=== PATIENT | female | born 1965 | race Caucasian/White ===

== ENCOUNTER → 2018-05-26 | Outpatient (CLI) | payer MEDICAID ==
--- NOTE | 2018-05-30 07:46 | MM ---
Reason for exam: screening (asymptomatic). Last mammogram was performed 2 years and 1 month ago. History: Patient is postmenopausal. Physical Findings: A clinical breast exam by your physician is recommended on an annual basis and results should be correlated with mammographic findings. MG 3D Screening Mammo W/Cad Bilateral CC and MLO view(s) were taken. Prior study comparison: April 28, 2016, bilateral MG 3d screening mammo w/cad. February 28, 2015, bilateral MG screening mammo w CAD. The breast tissue is heterogeneously dense. This may lower the sensitivity of mammography. No significant changes when compared with prior studies. ASSESSMENT: Negative, BI-RAD 1 RECOMMENDATION: Routine screening mammogram of both breasts in 1 year.
== END | disposition home or self-care (01) ==
LOC: RADMAMWWP 07:16
PROVIDERS: ATTEND Family Medicine
DX: Z12.31 Encounter for screening mammogram for malignant neoplasm of breast (principal)
CPT/HCPCS: 77063; 77067

== ENCOUNTER → 2019-06-14 | Outpatient (CLI) | payer MEDICAID ==
--- NOTE | 2019-06-15 11:54 | MM ---
Reason for exam: screening (asymptomatic). Last mammogram was performed 1 year and 1 month ago. History: Patient is postmenopausal. Family history of breast cancer in sister. Physical Findings: A clinical breast exam by your physician is recommended on an annual basis and results should be correlated with mammographic findings. MG 3D Screening Mammo W/Cad Bilateral CC and MLO view(s) were taken. Prior study comparison: May 26, 2018, bilateral MG 3d screening mammo w/cad. April 28, 2016, bilateral MG 3d screening mammo w/cad. The breast tissue is heterogeneously dense. This may lower the sensitivity of mammography. No suspicious abnormality on the right breast. Left central inner middle depth focal asymmetry. ASSESSMENT: Incomplete: need additional imaging evaluation, BI-RAD 0 RECOMMENDATION: Special view mammogram of the left breast. If lesion persists on supplemental views, image directed ultrasound is recommended. [facility] will attempt to contact patient to return for supplemental views and ultrasound if indicated.
== END | disposition home or self-care (01) ==
LOC: RADMAMWWP 08:12
PROVIDERS: ATTEND Family Medicine
DX: Z12.39 Encounter for other screening for malignant neoplasm of breast (principal)
CPT/HCPCS: 77063; 77067

== ENCOUNTER → 2019-06-22 | Outpatient (CLI) | payer MEDICAID ==
--- NOTE | 2019-06-25 09:00 | MM ---
Reason for exam: additional evaluation requested from abnormal screening. Last mammogram was performed less than 1 month ago. History: Patient is postmenopausal. Family history of breast cancer in sister and breast cancer in paternal aunt. Physical Findings: Nurse did not find any significant physical abnormalities on exam. MG 3D Work Up W/Cad LT Spot compression CC, spot compression MLO, and LM view(s) were taken of the left breast. Prior study comparison: June 14, 2019, bilateral MG 3d screening mammo w/cad. May 26, 2018, bilateral MG 3d screening mammo w/cad. The breast tissue is heterogeneously dense. This may lower the sensitivity of mammography. There is no discrete abnormality including area of concern on compression. These results were verbally communicated with the patient and result sheet given to the patient on 06/22/19. ASSESSMENT: Probably benign, BI-RAD 3 RECOMMENDATION: Follow-up diagnostic mammogram of the left breast in 6 months.
== END | disposition home or self-care (01) ==
LOC: RADMAMWWP 14:54
PROVIDERS: ATTEND Family Medicine
DX: R92.8 Other abnormal and inconclusive findings on diagnostic imaging of breast (principal)
CPT/HCPCS: 77061; 77065

== ENCOUNTER 2020-10-27 12:33 | Emergency (ER) | payer MEDICAID ==
[2020-10-27] MEDS ORDERED: ASPIRIN 81 MG PO STA (14:20)
--- NOTE | 2020-10-27 14:23 | ED ---
Recheck HPI - General Chief Complaint: Recheck/Abnormal Lab/Rx Stated Complaint: abn EKG Time Seen by Provider: 10/27/20 14:02 Source: patient, family Mode of arrival: ambulatory Limitations: no limitations - History of Present Illness Initial Comments: 55-year-old female presents to emergency Department with a chief complaint of EKG changes. Patient reports over the last 3-4 days she has been parents and lightheaded episodes with hypotension of a systolic blood pressure in the high 90s. Patient also reports having bilateral hand tremors over the last several days at the same time. She also reports feeling slightly nausea but denies any vomiting. Patient reports today she went to her primary care physician who obtained EKGs and her noted Q waves in lead II and aVF so he advised her to come to the emergency department further evaluation. Patient is nonsmoker. No history of hypertension but does report dyslipidemia but is not currently tr eated for. Not diabetic nor kidney disease. However, she does have strong family history of early cardiac related and both parents at the age of 47. She denies any associated chest pain or shortness of breath at this time. He also reports feeling anxious at the moment. - Related Data Home Medications Medication Instructions Recorded Confirmed No Known Home Medications 02/05/14 02/05/14 Allergies Allergy/AdvReac Type Severity Reaction Status Date / Time No Known Allergies Allergy Verified 10/27/20 13:00 Review of Systems ROS Statement: Those systems with pertinent positive or pertinent negative responses have been documented in the HPI. ROS Other: All systems not noted in ROS Statement are negative. Past Medical History Past Medical History: Cancer Additional Past Medical History / Comment(s): skin cancer History of Any Multi-Drug Resistant Organisms: None Reported Additional Past Surgical History / Comment(s): skin cancer removal Past Psychological History: No Psychological Hx Reported Smoking Status: Never smoker Past Alcohol Use History: None Reported Past Drug Use History: None Reported General Exam Limitations: no limitations General appearance: alert, in no apparent distress, anxious Head exam: Present: atraumatic, normocephalic, normal inspection Eye exam: Present: normal appearance, PERRL, EOMI Pupils: Present: normal accommodation ENT exam: Present: normal exam, normal oropharynx, mucous membranes moist, TM's normal bilaterally, normal external ear exam Neck exam: Present: normal inspection, full ROM. Absent: tenderness, lymphadenopathy Respiratory exam: Present: normal lung sounds bilaterally. Absent: respiratory distress, wheezes, rales, rhonchi, stridor, chest wall tenderness, accessory muscle use Cardiovascular Exam: Present: regular rate, normal rhythm, normal heart sounds. Absent: systolic murmur Extremities exam: Present: normal inspection, full ROM, normal capillary refill, other (Palpable DP and PT bilaterally.). Absent: tenderness, pedal edema, joint swelling, calf tenderness Back exam: Present: normal inspection, full ROM. Absent: tenderness, CVA tenderness (R), CVA tenderness (L) Neurological exam: Present: alert, oriented X3 Psychiatric exam: Present: normal affect, normal mood Skin exam: Present: warm, dry, intact, normal color Course Vital Signs 10/27/20 10/27/20 13:00 14:37 Temperature 98.3 F Pulse Rate 72 74 Respiratory 16 18 Rate Blood Pressure 125/87 132/95 O2 Sat by Pulse 100 100 Oximetry Medical Decision Making - Medical Decision Making 55-year-old female presents to emergency Department with a chief complaint of EKG changes. On physical examination, patient is well-appearing with stable vitals. CBC CMP was within normal limits. Initial troponins are negative. EKG changes reveal a Q wave in lead 3 and aVF. No other acute ischemic changes noted. EKG was also evaluated by Dr. Pickens. No chest pain or shortness of breath. Chest x-ray is unremarkable. I offered cardiac observation to the patient, she declined. 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 Strict return parameters were thoroughly discussed the patient was understanding ago. Case discussed with Dr. Pickens. - Lab Data Result diagrams: 10/27/20 14:29 10/27/20 14:29 Lab Results 10/27/20 10/27/20 10/27/20 Range/Units 14:29 14:29 14:29 WBC 7.6 (3.8-10.6) k/uL RBC 4.47 (3.80-5.40) m/uL Hgb 13.4 (11.4-16.0) gm/dL Hct 40.3 (34.0-46.0) % MCV 90.1 (80.0-100.0) fL MCH 30.0 (25.0-35.0) pg MCHC 33.3 (31.0-37.0) g/dL RDW 12.6 (11.5-15.5) % Plt Count 266 (150-450) k/uL MPV 7.8 Neutrophils % 64 % Lymphocytes % 28 % Monocytes % 4 % Eosinophils % 2 % Basophils % 0 % Neutrophils # 4.9 (1.3-7.7) k/uL Lymphocytes # 2.2 (1.0-4.8) k/uL Monocytes # 0.3 (0-1.0) k/uL Eosinophils # 0.2 (0-0.7) k/uL Basophils # 0.0 (0-0.2) k/uL PT 10.3 (9.0-12.0) sec INR 1.0 (<1.2) APTT 25.0 (22.0-30.0) sec Sodium 143 (137-145) mmol/L Potassium 4.4 (3.5-5.1) mmol/L Chloride 107 (98-107) mmol/L Carbon Dioxide 28 (22-30) mmol/L Anion Gap 8 mmol/L BUN 13 (7-17) mg/dL Creatinine 0.67 (0.52-1.04) mg/dL Est GFR (CKD-EPI)AfAm >90 (>60 ml/min/1.73 sqM) Est GFR (CKD-EPI)NonAf >90 (>60 ml/min/1.73 sqM) Glucose 99 (74-99) mg/dL Calcium 9.7 (8.4-10.2) mg/dL Magnesium 2.3 (1.6-2.3) mg/dL Total Bilirubin 0.3 (0.2-1.3) mg/dL AST 24 (14-36) U/L ALT 15 (4-34) U/L Alkaline Phosphatase 84 (38-126) U/L Troponin I (0.000-0.034) ng/mL Total Protein 7.6 (6.3-8.2) g/dL Albumin 4.6 (3.5-5.0) g/dL 10/27/20 Range/Units 14:29 WBC (3.8-10.6) k/uL RBC (3.80-5.40) m/uL Hgb (11.4-16.0) gm/dL Hct (34.0-46.0) % MCV (80.0-100.0) fL MCH (25.0-35.0) pg MCHC (31.0-37.0) g/dL RDW (11.5-15.5) % Plt Count (150-450) k/uL MPV Neutrophils % % Lymphocytes % % Monocytes % % Eosinophils % % Basophils % % Neutrophils # (1.3-7.7) k/uL Lymphocytes # (1.0-4.8) k/uL Monocytes # (0-1.0) k/uL Eosinophils # (0-0.7) k/uL Basophils # (0-0.2) k/uL PT (9.0-12.0) sec INR (<1.2) APTT (22.0-30.0) sec Sodium (137-145) mmol/L Potassium (3.5-5.1) mmol/L Chloride (98-107) mmol/L Carbon Dioxide (22-30) mmol/L Anion Gap mmol/L BUN (7-17) mg/dL Creatinine (0.52-1.04) mg/dL Est GFR (CKD-EPI)AfAm (>60 ml/min/1.73 sqM) Est GFR (CKD-EPI)NonAf (>60 ml/min/1.73 sqM) Glucose (74-99) mg/dL Calcium (8.4-10.2) mg/dL Magnesium (1.6-2.3) mg/dL Total Bilirubin (0.2-1.3) mg/dL AST (14-36) U/L ALT (4-34) U/L Alkaline Phosphatase (38-126) U/L Troponin I <0.012 (0.000-0.034) ng/mL Total Protein (6.3-8.2) g/dL Albumin (3.5-5.0) g/dL - EKG Data EKG Comments: Sinus rhythm with first-degree AV block Q-wave in lead 3 and aVF Ventricular rate 73, pO2 110, QRS 60, QTC 431. Disposition Clinical Impression: No acute ischemic changes on electrocardiogram, Lightheadedness Disposition: HOME SELF-CARE Condition: Stable Instructions (If sedation given, give patient instructions): Stress Echocardiogram (DC) Additional Instructions: Follow-up with the manager performance improvement. Return to emergency department if symptoms worsen. Is patient prescribed a controlled substance at d/c from ED?: No Referrals: Elizabeth Ramos III, MD [Primary Care Provider] - 1-2 days Adair Gordillo MD [STAFF PHYSICIAN] - 1-2 days Time of Disposition: 15:59
[2020-10-27 14:45] LABS: Basophils % (A) 0 %; Eosinophils # (A) 0.2 k/uL (0-0.7); Eosinophils % (A) 2 %; HCT 40.3 % (34.0-46.0); HGB 13.4 gm/dL (11.4-16.0); Lymphocytes # (A) 2.2 k/uL (1.0-4.8); Lymphocytes % (A) 28 %; MCHC 33.3 g/dL (31.0-37.0); MCV 90.1 fL (80.0-100.0); Mean Platelet Volume 7.8; Monocytes # (A) 0.3 k/uL (0-1.0); Monocytes % (A) 4 %; Neutrophils # (A) 4.9 k/uL (1.3-7.7); Neutrophils % (A) 64 %; Platelet Count 266 k/uL (150-450); RBC 4.47 m/uL (3.80-5.40); RDW 12.6 % (11.5-15.5); WBC 7.6 k/uL (3.8-10.6)
[2020-10-27 14:53] LABS: ALT 15 U/L (4-34); AST 24 U/L (14-36); African American GFR (CKD) >90 (>60 ml/min/1.73 sqM); Albumin 4.6 g/dL (3.5-5.0); Alkaline Phosphatase 84 U/L (38-126); Anion Gap 8 mmol/L; Blood Urea Nitrogen 13 mg/dL (7-17); Calcium 9.7 mg/dL (8.4-10.2); Carbon Dioxide 28 mmol/L (22-30); Chloride 107 mmol/L (98-107); Glucose 99 mg/dL (74-99); Magnesium 2.3 mg/dL (1.6-2.3); Non-African American GFR(CKD) >90 (>60 ml/min/1.73 sqM); Potassium 4.4 mmol/L (3.5-5.1); Sodium 143 mmol/L (137-145); Total Bilirubin 0.3 mg/dL (0.2-1.3); Total Protein 7.6 g/dL (6.3-8.2)
[2020-10-27 15:13] LABS: Prothrombin Time 10.3 sec (9.0-12.0)
--- NOTE | 2020-10-27 15:46 | XR ---
EXAMINATION TYPE: XR chest 2V DATE OF EXAM: 10/27/2020 COMPARISON: None HISTORY: 55-year-old female with chest pain TECHNIQUE: Frontal and lateral views FINDINGS: The cardiomediastinal silhouette, aorta, and pulmonary vasculature are within normal limits. Lungs an d pleural spaces are clear. IMPRESSION: No acute cardiopulmonary process.
[2020-10-27 16:26] VITALS: BP 121/72; PULSE 80; RESP 16; TEMP 98.2
== END 2020-10-27 16:31 | disposition home or self-care (01) ==
LOC: EC 12:33
DX: R42 Dizziness and giddiness (principal); R11.0 Nausea; R25.1 Tremor, unspecified
CPT/HCPCS: 36415; 71046; 80053; 83735; 84484; 85025; 85610; 85730; 93005; 99284

== ENCOUNTER → 2020-12-30 | Outpatient (CLI) | payer MEDICAID ==
[2020-12-30 10:30] VITALS: BP 114/77; PULSE 71; RESP 16; TEMP 97.9
--- NOTE | 2020-12-30 12:22 | P.HPOB ---
History of Present Illness H&P Date: 12/30/20 Chief Complaint: The patient is here for her routine gynecologic exam. This is a 55-year-old with an LMP of 2010. The patient is here to establish with this office. It has been about 3 years since her last pelvic exam. She is without gynecologic complaints and denies any postmenopausal bleeding. She does have infrequent mild hot flashes still. She was told by her PCP that she does have a bladder which has slightly dropped. She states this does not cause her any problems. She does not have any problems voiding. Review of Systems The patient has lost 10 pounds over the last year. She states she has been trying to eat better and eat healthier. She denies respiratory, cardiac, or G.I. problems. Past Medical History Past Medical History: Cancer, Thyroid Disorder Additional Past Medical History / Comment(s): skin cancer. Hypothyroid. 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 History of Any Multi-Drug Resistant Organisms: None Reported Past Surgical History: Tonsillectomy Additional Past Surgical History / Comment(s): skin cancer removal. Past Psychological History: No Psychological Hx Reported Smoking Status: Never smoker Past Alcohol Use History: None Reported Past Drug Use History: None Reported Additional History: She has been since 1985. 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 - Past Family History Mother Family Medical History: Diabetes Mellitus, Myocardial Infarction ([place]) Additional Family Medical History / Comment(s): . Father Family Medical History: Myocardial Infarction ([place]) Additional Family Medical History / Comment(s): . Sister(s) Family Medical History: Cancer Additional Family Medical History / Comment(s): Breast cancer. Medications and Allergies Home Medications Medication Instructions Recorded Confirmed Type Mv-Min/Vit C/Glut/Lysine/Hc124 2 tab PO DAILY 10/27/20 12/30/20 History [Airborne Tablet Chewable] Potassium Gluconate [Potassium 99 mg PO DAILY 10/27/20 12/30/20 History Gluconate ER] Thyro-Tone 500mg 1 tab PO DAILY 10/27/20 12/30/20 History Adrenal Nourish 1 tab PO DAILY 12/30/20 12/30/20 History Cyanocobalamin (Vitamin B-12) 5,000 mcg PO DAILY 12/30/20 12/30/20 History [Vitamin B12] Allergies Allergy/AdvReac Type Severity Reaction Status Date / Time ciprofloxacin [From Cipro] Allergy Rash/Hives Verified 10/27/20 16:21 Exam Vital Signs Temp Pulse Resp BP Pulse Ox 12/30/20 10:26 97.9 F 71 16 114/77 98 Intake and Output 12/29/20 12/30/20 12/30/20 22:59 06:59 14:59 Other: Weight 69.4 kg Height 5 feet 4 inches, weight 153 pounds, BMI 26.3. This is a well-developed well-nourished white female who is alert and oriented times 3 in no acute distress. HEENT: Within normal limits. NECK: Supple without mass or thyromegaly. CHEST AND LUNGS: Clear to auscultation. HEART: Regular rate and rhythm. BREASTS: Are without mass or discharge. AXILLARY EXAM: Negative for adenopathy. BACK: Negative for CVA tenderness. ABDOMEN: Soft, nontender, without palpable masses. PELVIC EXAM: Normal external genitalia with mild atrophy. There is a grade 2 cystocele. There is no other significant pelvic organ prolapse. Cervix and vagina appear otherwise normal with mild atrophy. There is no unusual discharge. The uterus is midposition, nongravid size and nontender. There are no palpable adnexal masses or tenderness. RECTAL EXAM: Rectovaginal exam is negative for mass or tenderness and is negative for occult blood. EXTREMITIES: Nontender. IMPRESSION: 1. 55-year-old menopausal female with an asymptomatic grade 2 cystocele. Otherwise unremarkable pelvic exam. PLAN: 1. Pap smear cotest was performed. 2. Self breast awareness was discussed with the patient. We have also discussed symptoms associated with inflammatory breast cancer. 3. The patient has an appointment for a screening mammogram on 01/12/2021. The order slip was given to the patient for this. 4. Osteoporosis prevention was discussed. I have stressed the importance of adequate calcium, vitamin D and regular exercise. Recommended amounts of calcium and vitamin D were also discussed. 5. She has not received a Covid vaccine. I have recommended that she look into getting the vaccination. She states she is considering it. We have discussed reasons why this is important. 6. She was advised to return in one year for her annual well woman exam.
--- NOTE | 2021-01-15 10:17 | P.PN ---
Progress Note - Text Progress Note Date: 01/15/21 OUTPATIENT FOLLOW-UP NOTE TEST(S)/RESULTS: Test results from 12/30/2020 include negative high-risk HPV testing and the Pap smear cytology is pending. METHOD OF NOTIFICATION: A message with this result was left on the patient's voicemail. PATIENT COMMENTS: DIAGNOSIS: Incomplete Pap smear cotest DISCUSSION: PLAN: Await Pap smear cytology. The patient will be notified when this is back.
--- NOTE | 2021-01-20 13:57 | P.PN ---
Progress Note - Text Progress Note Date: 01/20/21 OUTPATIENT FOLLOW-UP NOTE TEST(S)/RESULTS: Test results from 12/30/2020 include negative Pap smear with negative high risk HPV (negative cotest) and benign mammogram. METHOD OF NOTIFICATION: the patient was notified by phone. PATIENT COMMENTS: the patient is happy to hear these results. DIAGNOSIS: Negative Pap smear cotest and benign mammogram. DISCUSSION: PLAN: The patient is to return in one year for her annual well woman exam.
== END | disposition home or self-care (01) ==
LOC: WWCWWP 09:57
PROVIDERS: ATTEND Obstetrics & Gynecology
DX: Z53.9 Procedure and treatment not carried out, unspecified reason (principal)

== ENCOUNTER → 2021-01-07 | Outpatient (CLI) | payer MEDICAID ==
--- NOTE | 2021-01-07 11:29 | MM ---
Reason for exam: additional evaluation requested from prior study. Last mammogram was performed 1 year and 7 months ago. History: Patient is postmenopausal. Family history of breast cancer in sister and breast cancer in paternal aunt. Physical Findings: Nurse did not find any significant physical abnormalities on exam. MG 3D Diag Mammo W/Cad ABHISHEK Bilateral CC and MLO view(s) were taken. Prior study comparison: June 22, 2019, left breast MG 3d work up w/cad LT. June 14, 2019, bilateral MG 3d screening mammo w/cad. The breast tissue is heterogeneously dense. This may lower the sensitivity of mammography. There is no discrete abnormality. No significant new findings when compared with previous films. These results were verbally communicated with the patient and result sheet given to the patient on 01/07/21. ASSESSMENT: Negative, BI-RAD 1 RECOMMENDATION: Routine screening mammogram of both breasts in 1 year.
== END | disposition home or self-care (01) ==
LOC: RADMAMWWP 10:24
PROVIDERS: ATTEND Obstetrics & Gynecology
DX: R92.8 Other abnormal and inconclusive findings on diagnostic imaging of breast (principal)
CPT/HCPCS: 77062; 77066

== ENCOUNTER → 2022-09-21 | Outpatient (CLI) | payer MEDICAID ==
[2022-09-21 14:16] VITALS: BP 118/80; PULSE 102; RESP 17; TEMP 98.3
--- NOTE | 2022-09-21 15:03 | P.HPOB ---
History of Present Illness H&P Date: 09/21/22 Chief Complaint: The patient is here for her routine gynecologic exam and ma mmogram. This is a 57-year-old with an LMP of 2010. Last month the patient noticed slight yellowish discharge from the vagina. This was without odor or pruritus. She denies recent antibiotic usage. During the past 3 weeks the discharge changed to be dark brown and occasionally slightly reddish. She was wondering if she might be starting to have menstrual periods again. She has not noticed this discharge today. She has also been experiencing some urinary frequency without dysuria. Review of Systems The patient has gained 6 pounds over the last year. She denies respiratory, cardiac, or G.I. problems. Past Medical History Past Medical History: Cancer, Thyroid Disorder Additional Past Medical History / Comment(s): skin cancer. Hypothyroid. PAST [employer] HISTORY: She has no history of STDs. History of Any Multi-Drug Resistant Organisms: None Reported Past Surgical History: Tonsillectomy Additional Past Surgical History / Comment(s): skin cancer removal. Past Psychological History: No Psychological Hx Reported Smoking Status: Never smoker Past Alcohol Use History: None Reported Past Drug Use History: None Reported Additional History: She has been since 1985 and is sexually active. 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 - Past Family History Mother Family Medical History: Diabetes Mellitus, Myocardial Infarction ([place]) Additional Family Medical History / Comment(s): . Father Family Medical History: Myocardial Infarction ([place]) Additional Family Medical History / Comment(s): . Sister(s) Family Medical History: Cancer Additional Family Medical History / Comment(s): Breast cancer. Medications and Allergies Home Medications Medication Instructions Recorded Confirmed Type Thyro-Tone 500mg 1 tab PO DAILY 10/27/20 09/21/22 History Adrenal Nourish 1 tab PO DAILY 12/30/20 09/21/22 History Cyanocobalamin (Vitamin B-12) 5,000 mcg PO DAILY 12/30/20 09/21/22 History [Vitamin B12] Allergies Allergy/AdvReac Type Severity Reaction Status Date / Time ciprofloxacin [From Cipro] Allergy Rash/Hives Verified 09/21/22 14:11 Exam Vital Signs Temp Pulse Resp BP Pulse Ox 09/21/22 14:13 98.3 F 102 H 17 118/80 98 Intake and Output 09/20/22 09/21/22 09/21/22 22:59 06:59 14:59 Other: Weight 72.121 kg Height 5 feet 4 inches, weight 159 pounds, BMI 27.3. This is a well-developed well-nourished white female who is alert and oriented times 3 in no acute distress. HEENT: Within normal limits. NECK: Supple without mass or thyromegaly. CHEST AND LUNGS: Clear to auscultation. HEART: Regular rate and rhythm. BREASTS: Are without mass or discharge. AXILLARY EXAM: Negative for adenopathy. BACK: Negative for CVA tenderness. ABDOMEN: Soft, nontender, without palpable masses. PELVIC EXAM: Normal external genitalia with mild atrophy. Cervix and vagina appear normal with mild atrophy. There is no unusual discharge or blood noted. There is a stable grade 2 cystocele. There is a grade 1 uterine prolapse. The uterus is midposition, nongravid size and nontender. There are no palpable adnexal masses or tenderness. RECTAL EXAM: rectovaginal exam is negative for mass or tenderness and is negative for occult blood. EXTREMITIES: Nontender. IMPRESSION: 1. 57-year-old menopausal female with stable grade 2 cystocele. 2. Recent yellowish discharge noted last month which is changed to a brownish discharge. This can be considered possible postmenopausal bleeding. There are no significant findings for vaginal infection or vaginal erosion. 3. Urinary frequency. PLAN: 1. Pap smear was deferred since she had a negative Pap smear cotest on 12/30/2020. 2. Self breast awareness was discussed with the patient. We have also discussed symptoms associated with inflammatory breast cancer. 3. Screening mammogram will be done today. 4. Affirm vaginitis panel was obtained from the vagina. 5. Urine will be obtained (clean catch midstream) for urinalysis and culture with sensitivities. 6. Pelvic ultrasound was recommended to further evaluate the endometrial thickness. The ultrasound order slip was given to the patient 7. Continue conservative management for the stable cystocele. 8. As above. She was advised to return in one year for her annual well woman exam and as needed.
[2022-09-22 02:22] LABS: Appearance,Urine Clear (Clear); Bilirubin,Urine Negative (Negative); Blood,Urine Negative (Negative); Color,Urine Yellow (Yellow); Ketones,Urine Negative (Negative); Nitrite,Urine Negative (Negative); PH, Urine 6.5 (5.0-8.0); Specific Gravity,Urine 1.008 (1.001-1.030); Urobilinogen,Urine 0.2 (0.2,1.0)
[2022-09-22 03:45] LABS: Bacteria,Urine None Seen /HPF (None Seen)
[2022-09-22 12:03] LABS: Gardnerella Negative (Negative); Source Vagina; Trichomonas Negative (Negative)
--- NOTE | 2022-09-22 12:29 | P.PN ---
Progress Note - Text Progress Note Date: 09/22/22 OUTPATIENT FOLLOW-UP NOTE TEST(S)/RESULTS: Test results from 09/21/2022 include a urinalysis which was positive for moderate leukocyte esterase, and affirm vaginitis panel which was negative for Eileen, Gardnerella, and Trichomonas. METHOD OF NOTIFICATION: The patient was notified by phone on 09/22/2022. PATIENT COMMENTS: The patient had a question about the pelvic ultrasound and whether she should come with a full bladder and if the abdominal ultrasound was necessary. DIAGNOSIS: Probable cystitis UTI with urinary frequency. No evidence of eileen, Gardnerella, or Trichomonas. DISCUSSION: I have explained that the order for transabdominal ultrasound with possible transvaginal ultrasound would give 2 perspectives on evaluating the gynecologic organs. She understands this and will schedule the ultrasound. PLAN: Macrobid 1 by mouth every 12 hours for 7 days. Electronic prescription was sent to [facility] in [facility]. Await urine culture. She will call if her urinary symptoms do not improve. Pelvic ultrasound will be scheduled as above.
--- NOTE | 2022-09-22 12:30 | MM ---
Reason for Exam: Screening (asymptomatic). Last mammogram was performed 1 year(s) and 8 month(s) ago. Patient History: Menarche at age 13. First Full-Term at age 25. Postmenopausal. Paternal aunt had breast cancer. Sister had breast cancer. Risk Values: Quin 5 year model risk: 2.5%. NCI Lifetime model risk: 14.9%. Prior Study Comparison: 06/14/2019 Bilateral Screening Mammogram, [facility]. 06/22/2019 Left Diagnostic Mammogram, [facility]. 01/07/2021 Bilateral Diagnostic Mammogram, [facility]. Tissue Density: The breast tissue is heterogeneously dense. This may lower the sensitivity of mammography. Findings: Analyzed By CAD. There are a few scattered tiny benign-appearing round calcifications throughout the bilateral breasts are redemonstrated. There is no suspicious group of microcalcifications or new suspicious mass in either breast. Overall Assessment: Benign, BI-RAD 2 Management: Screening Mammogram of both breasts in 1 year. . Patient should continue monthly self-breast exams. A clinical breast exam by your physician is recommended on an annual basis. This exam should not preclude additional follow-up of suspicious palpable abnormalities. Note on Quin scores and lifetime risk: 1. A Quin score greater than 3% is considered moderate risk. If this is the case, consider specialist referral to assess eligibility for a risk reducing agent. 2. If overall lifetime risk for the development of breast cancer is 20% or higher, the patient may qualify for future screening with alternating mammogram and breast MRI. Electronically signed and approved by: Vic Alvarez M.D.
== END ==
LOC: WWCWWP 14:04
PROVIDERS: ATTEND Obstetrics & Gynecology
DX: Z85.3 Personal history of malignant neoplasm of breast (principal); Z80.3 Family history of malignant neoplasm of breast; Z88.8 Allergy status to other drugs, medicaments and biological substances; Z88.1 Allergy status to other antibiotic agents; E03.9 Hypothyroidism, unspecified
CPT/HCPCS: 77063; 77067; 81001; 87086; 87480; 87510; 87660

== ENCOUNTER → 2022-09-29 | Outpatient (CLI) | payer MEDICAID ==
--- NOTE | 2022-09-29 17:59 | US ---
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 TECHNIQUE: Transvaginal (TV) and Transabdominal (TA) . Transabdominal sonographic images of the pel vis were acquired. Transvaginal sonographic images were medically necessary to better assess the fol lowing anatomy: Endometrium, ovaries Date of LMP: OCCUPATIONAL NURSE, EXAM MEASUREMENTS: Uterus: 7.5 x 4.5 x 3.2 cm Endometrial Stripe: 0.2 cm Right Ovary: 2.1 x 1.0 x 1.3 cm 1. Uterus: Anteverted and otherwise without gross abnormality. 2. Endometrium: wnl 3. Right Ovary: wnl 4. Left Ovary: Obscured by overlying bowel gas 5. Bilateral Adnexa: no free fluid, wnl 6. Posterior cul-de-sac: no free fluid IMPRESSION: No specific abnormality identified of the pelvis. Endometrial stripe thickness measured at 2 mm.
== END | disposition home or self-care (01) ==
LOC: RADUSWWP 09:33
PROVIDERS: ATTEND Obstetrics & Gynecology
DX: N95.0 Postmenopausal bleeding (principal); R93.89 Abnormal findings on diagnostic imaging of other specified body structures
CPT/HCPCS: 76830; 76856

== ENCOUNTER 2022-11-03 17:00 | Emergency (ER) | payer MEDICAID ==
[2022-11-03 17:40] VITALS: TEMP 97.8
--- NOTE | 2022-11-03 18:24 | ED ---
Abdominal Pain HPI - General Source: patient, RN notes reviewed Mode of arrival: ambulatory Limitations: no limitations - History of Present Illness MD Complaint: abdominal pain Onset/Timin -: week(s) <Aixa Lira - Last Filed: 11/03/22 18:22> <Katelynn Coombs - Last Filed: 11/03/22 23:39> - General Chief Complaint: Abdominal Pain Stated Complaint: epigastric pain Time Seen by Provider: 11/03/22 18:15 - History of Present Illness Initial Comments: This is a 57-year-old female who presents to the emergency department for lower abdominal pain. Pain does not radiate. Symptoms started 2 weeks ago. She has nausea but no vomiting. Denies any fevers or changes in urinary or bowel habits. (Aixa Lira) 57-year-old female presenting with chief complaint of abdominal pain ongoing for several weeks. Pain is located primarily in the epigastric region. States that it gets worse after eating. She meets to nausea with no vomiting. No history of abdominal surgeries. No fevers or chills. No chest pain or difficulty breathing. No diarrhea, hematochezia, melena. No dysuria or hematuria. (Katelynn Coombs) - Related Data Home Medications Medication Instructions Recorded Confirmed Thyro-Tone 500mg 1 tab PO DAILY 10/27/20 09/21/22 Adrenal Nourish 1 tab PO DAILY 12/30/20 09/21/22 Cyanocobalamin (Vitamin B-12) 5,000 mcg PO DAILY 12/30/20 09/21/22 [Vitamin B12] Previous Rx's Medication Instructions Recorded Nitrofurantoin Monohyd/M-Cryst 100 mg PO Q12HR 7 Days #14 cap 09/22/22 [Macrobid] Pantoprazole Sodium [Protonix] 40 mg PO DAILY #20 tab 11/03/22 Sucralfate [Carafate] 1 gm PO BID #20 tablet 11/03/22 Allergies Allergy/AdvReac Type Severity Reaction Status Date / Time ciprofloxacin [From Cipro] Allergy Rash/Hives Verified 11/03/22 17:38 Review of Systems ROS Other: All systems not noted in ROS Statement are negative. <Aixa Lira - Last Filed: 11/03/22 18:22> ROS Other: All systems not noted in ROS Statement are negative. <Katelynn Coombs - Last Filed: 11/03/22 23:39> ROS Statement: Those systems with pertinent positive or pertinent negative responses have been documented in the HPI. Past Medical History Past Medical History: Cancer, Thyroid Disorder Additional Past Medical History / Comment(s): skin cancer. Hypothyroid. 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 History of Any Multi-Drug Resistant Organisms: None Reported Past Surgical History: Tonsillectomy Additional Past Surgical History / Comment(s): skin cancer removal. Past Psychological History: No Psychological Hx Reported Smoking Status: Never smoker Past Alcohol Use History: None Reported Past Drug Use History: None Reported - Past Family History Mother Family Medical History: Diabetes Mellitus, Myocardial Infarction ([place]) Additional Family Medical History / Comment(s): . Father Family Medical History: Myocardial Infarction ([place]) Additional Family Medical History / Comment(s): . Sister(s) Family Medical History: Cancer Additional Family Medical History / Comment(s): Breast cancer. <Aixa Lira - Last Filed: 11/03/22 18:22> General Exam Limitations: no limitations <Aixa Lira - Last Filed: 11/03/22 18:22> Limitations: no limitations General appearance: alert, in no apparent distress Head exam: Present: atraumatic, normocephalic, normal inspection Eye exam: Present: normal appearance, EOMI. Absent: scleral icterus, periorbital swelling Neck exam: Present: normal inspection, full ROM Respiratory exam: Present: normal lung sounds bilaterally. Absent: respiratory distress, wheezes, rales, rhonchi, stridor Cardiovascular Exam: Present: regular rate, normal rhythm, normal heart sounds. Absent: systolic murmur, diastolic murmur, rubs, gallop, clicks GI/Abdominal exam: Present: soft, tenderness. Absent: distended, guarding, rebound, rigid Neurological exam: Present: alert, oriented X3, CN II-XII intact Psychiatric exam: Present: normal affect, normal mood Skin exam: Present: warm, dry, intact, normal color. Absent: rash <Katelynn Coombs - Last Filed: 11/03/22 23:39> - General Exam Comments Initial Comments: Visual Physical Exam Vital signs reviewed General: Well-appearing, nontoxic, no acute distress. Head: Normocephalic, atraumatic Eyes: PERRLA, EOMI ENT: Airway patent Chest: Nonlabored breathing Skin: No visual rash, normal skin tone Neuro: Alert and oriented 3 Musculoskeletal: No gross abnormalities (Aixa Lira) Course Vital Signs 11/03/22 11/03/22 11/03/22 17:38 20:56 23:16 Temperature 97.8 F Pulse Rate 104 H 86 77 Respiratory 16 18 18 Rate Blood Pressure 117/74 127/89 132/87 O2 Sat by Pulse 97 97 99 Oximetry Medical Decision Making - Lab Data Result diagrams: 11/03/22 19:32 11/03/22 19:32 <Katelynn Coombs - Last Filed: 11/03/22 23:39> - Medical Decision Making Was pt. sent in by a medical professional or institution (, PA, CHURCH ADMINISTRATOR, urgent care, hospital, or shelter...) When possible be specific @ -No Did you speak to anyone other than the patient for history (EMS, parent, family, police, friend...)? What history was obtained from this source @ -No Did you review nursing and triage notes (agree or disagree)? Why? @ -I reviewed and agree with nursing and triage notes Were old charts reviewed (outside hosp., previous admission, EMS record, old EKG, old radiological studies, urgent care reports/EKG's, shelter records)? Report findings @ -No old charts were reviewed Differential Diagnosis (chest pain, altered mental status, abdominal pain women, abdominal pain men, vaginal bleeding, weakness, fever, dyspnea, syncope, headache, dizziness, GI bleed, back pain, seizure, CVA, palpatations, mental health, musculoskeletal)? @ -MDM Differential Abdominal Pain Women: Appendicitis, Cholecystitis, diverticulosis, ischemic bowel, pancreatitis, hepatitis, UTI, gastroenteritis, AAA, incarcerated hernia, bowel obstruction, constipation, inflammatory bowel, hepatitis, peptic ulcer disease, splenic infarction, perforated viscus, vulvitis, ovarian torsion, PID, kidney stone, jas centa abruption... This is not meant to be an all-inclusive list EKG interpreted by me (3pts min.). @ -As above X-rays interpreted by me (1pt min.). @ -None done CT interpreted by me (1pt min.). @ -CT shows findings of gastritis and duodenitis. No organized fluid collection U/S interpreted by me (1pt. min.). @ -None done What testing was considered but not performed or refused? (CT, X-rays, U/S, labs)? Why? @ -None What meds were considered but not given or refused? Why? @ -None Did you discuss the management of the patient with other professionals (professionals i.e. , PA, CHURCH ADMINISTRATOR, lab, RT, psych nurse, group social worker, manager of warehouse, teacher, public records officer, nurse outreach case manager)? Give summary @ -No Was smoking cessation discussed for >3mins.? @ -No Was critical care preformed (if so, how long)? @ -No Were there social determinants of health that impacted care today? How? (Homelessness, low income, unemployed, alcoholism, drug addiction, lee sportation, low edu. Level, literacy, decrease access to med. care, [facility], rehab)? @ -No Was there de-escalation of care discussed even if they declined (Discuss DNR or withdrawal of care, Hospice)? DNR status @ -No What co-morbidities impacted this encounter? (DM, HTN, Smoking, COPD, CAD, Cancer, CVA, ARF, Chemo, Hep., AIDS, mental health diagnosis, sleep apnea, morbid obesity)? @ -None Was patient admitted / discharged? Hospital course, mention meds given and route, prescriptions, significant lab abnormalities, going to OR and other pertinent info. @ -57-year-old female presenting with chief complaint of centralized abdominal pain ongoing for several weeks. On physical examination there is tenderness to the epigastric region. Lab work shows no leukocytosis or anemia. Urine shows signs of contamination. CT shows signs of gastritis and duodenitis. Patient reports improvement in symptoms after Pepcid. She is educated on gastritis and supportive management at home, she is sent home with prescription for Carafate and Protonix. Follow-up with PCP. Report back to ER with any new or worsening symptoms. Discussed return parameters and answered all questions. Patient conveyed verbal understanding and agreed to the plan. I discussed this case in detail with my attending Dr. Montes Undiagnosed new problem with uncertain prognosis? @ -No Drug Therapy requiring intensive monitoring for toxicity (Heparin, Nitro, Insulin, Cardizem)? @ -No Were any procedures done? @ -No Diagnosis/symptom? @ -Gastritis Acute, or Chronic, or Acute on Chronic? @ -Acute Uncomplicated (without systemic symptoms) or Complicated (systemic symptoms)? @ -Uncomplicated Side effects of treatment? @ -No Exacerbation, Progression, or Severe Exacerbation? @ -No Poses a threat to life or bodily function? How? (Chest pain, [place], [place], pneumonia, PE, COPD, DKA, ARF, appy, cholecystitis, CVA, Diverticulitis, Homicidal, Suicidal, threat to staff... and all critical care pts) @ -No (Katelynn Coombs) - Lab Data Lab Results 11/03/22 11/03/22 11/03/22 Range/Units 19:32 19:32 19:32 WBC 9.3 (3.8-10.6) k/uL RBC 4.70 (3.80-5.40) m/uL Hgb 14.0 (11.4-16.0) gm/dL Hct 43.2 (34.0-46.0) % MCV 91.9 (80.0-100.0) fL MCH 29.9 (25.0-35.0) pg MCHC 32.5 (31.0-37.0) g/dL RDW 12.5 (11.5-15.5) % Plt Count 327 (150-450) k/uL MPV 7.7 Neutrophils % 63 % Lymphocytes % 27 % Monocytes % 6 % Eosinophils % 3 % Basophils % 0 % Neutrophils # 5.9 (1.3-7.7) k/uL Lymphocytes # 2.5 (1.0-4.8) k/uL Monocytes # 0.5 (0-1.0) k/uL Eosinophils # 0.2 (0-0.7) k/uL Basophils # 0.0 (0-0.2) k/uL Sodium 139 (137-145) mmol/L Potassium 4.7 (3.5-5.1) mmol/L Chloride 103 (98-107) mmol/L Carbon Dioxide 27 (22-30) mmol/L Anion Gap 9 mmol/L BUN 16 (7-17) mg/dL Creatinine 0.78 (0.52-1.04) mg/dL Est GFR (CKD-EPI)AfAm >90 (>60 ml/min/1.73 sqM) Est GFR (CKD-EPI)NonAf 85 (>60 ml/min/1.73 sqM) Glucose 100 H (74-99) mg/dL Plasma Lactic Acid Jose 0.9 (0.7-2.0) mmol/L Calcium 9.9 (8.4-10.2) mg/dL Total Bilirubin 0.6 (0.2-1.3) mg/dL AST 23 (14-36) U/L ALT 18 (4-34) U/L Alkaline Phosphatase 103 (38-126) U/L Total Protein 8.3 H (6.3-8.2) g/dL Albumin 4.6 (3.5-5.0) g/dL Amylase (30-110) U/L Lipase (23-300) U/L Urine Color Urine Appearance (Clear) Urine pH (5.0-8.0) Ur Specific [place] (1.001-1.035) Urine Protein (Negative) Urine Glucose (UA) (Negative) Urine Ketones (Negative) Urine Blood (Negative) Urine Nitrite (Negative) Urine Bilirubin (Negative) Urine Urobilinogen (<2.0) mg/dL Ur Leukocyte Esterase (Negative) Urine RBC (0-5) /hpf Urine WBC (0-5) /hpf Ur Squamous Epith Cells (0-4) /hpf Urine Bacteria (None) /hpf Urine Mucus (None) /hpf 11/03/22 11/03/22 Range/Units 19:32 21:14 WBC (3.8-10.6) k/uL RBC (3.80-5.40) m/uL Hgb (11.4-16.0) gm/dL Hct (34.0-46.0) % MCV (80.0-100.0) fL MCH (25.0-35.0) pg MCHC (31.0-37.0) g/dL RDW (11.5-15.5) % Plt Count (150-450) k/uL MPV Neutrophils % % Lymphocytes % % Monocytes % % Eosinophils % % Basophils % % Neutrophils # (1.3-7.7) k/uL Lymphocytes # (1.0-4.8) k/uL Monocytes # (0-1.0) k/uL Eosinophils # (0-0.7) k/uL Basophils # (0-0.2) k/uL Sodium (137-145) mmol/L Potassium (3.5-5.1) mmol/L Chloride (98-107) mmol/L Carbon Dioxide (22-30) mmol/L Anion Gap mmol/L BUN (7-17) mg/dL Creatinine (0.52-1.04) mg/dL Est GFR (CKD-EPI)AfAm (>60 ml/min/1.73 sqM) Est GFR (CKD-EPI)NonAf (>60 ml/min/1.73 sqM) Glucose (74-99) mg/dL Plasma Lactic Acid Jose (0.7-2.0) mmol/L Calcium (8.4-10.2) mg/dL Total Bilirubin (0.2-1.3) mg/dL AST (14-36) U/L ALT (4-34) U/L Alkaline Phosphatase (38-126) U/L Total Protein (6.3-8.2) g/dL Albumin (3.5-5.0) g/dL Amylase 71 (30-110) U/L Lipase 81 (23-300) U/L Urine Color Light Yellow Urine Appearance Cloudy H (Clear) Urine pH 5.0 (5.0-8.0) Ur Specific [place] 1.011 (1.001-1.035) Urine Protein Negative (Negative) Urine Glucose (UA) Negative (Negative) Urine Ketones Negative (Negative) Urine Blood Trace H (Negative) Urine Nitrite Negative (Negative) Urine Bilirubin Negative (Negative) Urine Urobilinogen <2.0 (<2.0) mg/dL Ur Leukocyte Esterase Large H (Negative) Urine RBC 4 (0-5) /hpf Urine WBC 6 H (0-5) /hpf Ur Squamous Epith Cells 11 H (0-4) /hpf Urine Bacteria Rare H (None) /hpf Urine Mucus Rare H (None) /hpf Disposition <Aixa Lira - Last Filed: 11/03/22 18:22> Is patient prescribed a controlled substance at d/c from ED?: No Time of Disposition: 23:00 <Katelynn Coombs - Last Filed: 11/03/22 23:39> Clinical Impression: Gastritis and duodenitis Disposition: HOME SELF-CARE Condition: Good Instructions (If sedation given, give patient instructions): Gastritis (ED), Diet for Stomach Ulcers and Gastritis (ED) Additional Instructions: Follow-up with PCP. Report back to ER with any new or worsening symptoms. Prescriptions: Sucralfate [Carafate] 1 gm PO BID #20 tablet Pantoprazole Sodium [Protonix] 40 mg PO DAILY #20 tab Referrals: Elizabeth Ramos III, MD [Primary Care Provider] - 1-2 days
[2022-11-03 19:40] LABS: Basophils % (A) 0 %; Eosinophils # (A) 0.2 k/uL (0-0.7); Eosinophils % (A) 3 %; HCT 43.2 % (34.0-46.0); Lymphocytes # (A) 2.5 k/uL (1.0-4.8); Lymphocytes % (A) 27 %; MCH 29.9 pg (25.0-35.0); MCHC 32.5 g/dL (31.0-37.0); MCV 91.9 fL (80.0-100.0); Mean Platelet Volume 7.7; Monocytes # (A) 0.5 k/uL (0-1.0); Monocytes % (A) 6 %; Neutrophils # (A) 5.9 k/uL (1.3-7.7); Neutrophils % (A) 63 %; Platelet Count 327 k/uL (150-450); RDW 12.5 % (11.5-15.5); WBC 9.3 k/uL (3.8-10.6)
[2022-11-03 19:54] LABS: ALT 18 U/L (4-34); AST 23 U/L (14-36); African American GFR (CKD) >90 (>60 ml/min/1.73 sqM); Albumin 4.6 g/dL (3.5-5.0); Alkaline Phosphatase 103 U/L (38-126); Anion Gap 9 mmol/L; Blood Urea Nitrogen 16 mg/dL (7-17); Calcium 9.9 mg/dL (8.4-10.2); Carbon Dioxide 27 mmol/L (22-30); Chloride 103 mmol/L (98-107); Glucose 100 mg/dL (74-99); Non-African American GFR(CKD) 85 (>60 ml/min/1.73 sqM); Potassium 4.7 mmol/L (3.5-5.1); Sodium 139 mmol/L (137-145); Total Bilirubin 0.6 mg/dL (0.2-1.3); Total Protein 8.3 g/dL (6.3-8.2)
[2022-11-03 21:00] VITALS: RESP 18
[2022-11-03] MEDS ORDERED: FAMOTIDINE 20 MG/2 ML VIAL IV STA (21:06)
[2022-11-03] MEDS ORDERED: SODIUM CHLORIDE 0.9% 1,000 ML IV ONE (21:06)
[2022-11-03 21:27] LABS: Amylase 71 U/L (30-110); Lipase 81 U/L (23-300)
[2022-11-03 21:35] LABS: Appearance,Urine Cloudy (Clear); Bacteria,Urine Rare /hpf; Bilirubin,Urine Negative (Negative); Blood,Urine Trace (Negative); Color,Urine Light Yellow; Glucose,Urine (UA) Negative (Negative); Ketones,Urine Negative (Negative); Leukocyte Esterase,Urine Large (Negative); Mucus,Urine Rare /hpf; Nitrite,Urine Negative (Negative); Protein,Urine Negative (Negative); RBC,Urine 4 /hpf (0-5); Specific Gravity,Urine 1.011 (1.001-1.035); Squamous Epithelial Cell,Urine 11 /hpf (0-4); Urobilinogen,Urine <2.0 mg/dL (<2.0); WBC,Urine 6 /hpf (0-5)
--- NOTE | 2022-11-03 22:28 | CT ---
EXAMINATION TYPE: CT abdomen pelvis w con CT DLP: 786.6 mGycm, Automated exposure control for dose reduction was used. DATE OF EXAM: 11/03/2022 9:48 PM COMPARISON: None CLINICAL INDICATION:Female, 57 years old with history of epigastric pain; epigastric pain, hx of UTI TECHNIQUE: Standard CT of the abdomen and pelvis following the administration of 100 cc of Isovue 3 00 IV contrast material. Coronal and sagittal reformats were performed. FINDINGS: LOWER CHEST: Unremarkable ABDOMEN LIVER: Left hepatic lobe cyst measuring up to 2.4 cm. Additional smaller subcentimeter hypodense foci which likely represent cysts. GALLBLADDER AND BILE DUCTS: Unremarkable. PANCREAS: Unremarkable. SPLEEN: Unremarkable. ADRENAL GLANDS: Unremarkable. KIDNEYS AND URETERS: No evidence of hydronephrosis or renal calculus. The enhance symmetrically. Prom inent right extrarenal pelvis. Contrast is demonstrated within both collecting systems on the delayed phase. PELVIS BLADDER: Unremarkable REPRODUCTIVE: Unremarkable. ABDOMEN & PELVIS STOMACH AND BOWEL: There is wall thickening of the gastric antrum with surrounding inflammatory almanzar es. Additional wall thickening of the duodenum with surrounding inflammatory changes. Surrounding org anized fluid collection. Appendix is within normal limits. No evidence of bowel obstruction. PERITONEUM: No evidence of pneumoperitoneum. Trace free fluid in the pelvis. VASCULATURE: No evidence of aortic aneurysm. Multiple pelvic phleboliths. MUSCULOSKELETAL: No acute osseous abnormalities. Mild degenerative disc disease L5-S1. LYMPH NODES: No gross evidence for lymphadenopathy. SOFT TISSUE/ABDOMINAL WALL: Unremarkable IMPRESSION: Findings of gastritis/duodenitis. No organized fluid collection.
[2022-11-03] MEDS ORDERED: MAG HYDROX/AL HYDROX/SIMETH 30 ML, HYOSCYAMINE ELIXIR 10 ML, LIDOCAINE 2% GLYDO JELLY 1... PO STA ×3 (23:00)
[2022-11-03 23:17] VITALS: BP 132/87; PULSE 77
== END 2022-11-03 23:17 | disposition home or self-care (01) ==
LOC: EC 17:00
DX: K29.80 Duodenitis without bleeding (principal); K29.70 Gastritis, unspecified, without bleeding; E03.9 Hypothyroidism, unspecified; Z79.890 Hormone replacement therapy; Z88.1 Allergy status to other antibiotic agents
CPT/HCPCS: 99284; 96374; 96361; 36415; 80053; 82150; 83605; 83690; 85025; 81001; 74177; Q9967

== ENCOUNTER → 2024-08-01 | Outpatient (CLI) | payer MEDICAID ==
--- NOTE | 2024-08-01 10:03 | MR ---
EXAMINATION TYPE: MR brain and iac wo/w con DATE OF EXAM: 08/01/2024 7:51 AM COMPARISON: 02/05/2014 CT brain. CLINICAL INDICATION: Female, 59 years old with history of H91.90 HEARING LOSS; PHH, Dizziness, left s ided hearing loss. TECHNIQUE: Multi planar, multi sequence imaging was performed through the brain. Specialized thin s equences were obtained through the internal auditory canals. Pre-and post gadolinium sequences were obtained. IV Contrast: 7.5 mL Gadobutrol FINDINGS: The valderrama-white junctions, ventricular system, and cisterns appear unremarkable. Scattered foci of h igh T2 signal intensity are seen within the periventricular white matter. Midline structures show no abnormality. Diffusion-weighted imaging shows no evidence of restricted diffusion. The susceptibility weighted images do not reveal any evidence for micro-hemorrhage. The bone marrow signal is within normal limits. Paranasal sinuses and mastoid air cells: Mild scattered paranasal sinus disease. Visualized orbits: Orbital contents are intact. After administration of gadolinium, no abnormal enhancement is seen. The internal auditory canal sequences demonstrate no significant irregularity. The 7th cranial nerve s, 8 cranial nerves, and cerebellar pontine angles appear unremarkable. After the administration sandra olinium, no abnormal enhancement is seen within the internal auditory canals. Vascular loop: None. IMPRESSION: 1. No evidence of intracranial mass nor acute/subacute CVA. 2. No evidence of internal auditory canal abnormality. 3. Nonspecific white matter changes, likely secondary to small vessel ischemic disease. [facility], , 08/01/2024 10:00 AM
== END | disposition home or self-care (01) ==
LOC: RADMRIMAIN 06:42
PROVIDERS: ATTEND Otolaryngology
DX: I67.82 Cerebral ischemia (principal); H91.8X2 Other specified hearing loss, left ear
CPT/HCPCS: 70553; A9585

== ENCOUNTER → 2024-09-05 | Outpatient (CLI) | payer MEDICAID ==
--- NOTE | 2024-09-05 09:41 | XR ---
EXAMINATION TYPE: XR foot complete RT DATE OF EXAM: 09/05/2024 COMPARISON: NONE HISTORY: Pain TECHNIQUE: Frontal, lateral and oblique images of the right foot are obtained. FINDINGS: There is no acute fracture/dislocation evident. The joint spaces appear within normal zelaya its. The overlying soft tissue appears unremarkable. No radiopaque foreign body. No osseous erosions . No periosteal reaction. IMPRESSION: There is no acute fracture or dislocation seen. Consider further evaluation with MRI as clinically indicated. [facility], , 09/05/2024 9:39 AM
== END | disposition home or self-care (01) ==
LOC: RADXRYALE 09:18
PROVIDERS: ATTEND Physician Assistant
DX: M79.671 Pain in right foot (principal)

== ENCOUNTER → 2024-11-20 | Outpatient (CLI) | payer MEDICAID ==
[2024-11-20 10:31] VITALS: BP 115/78; PULSE 81; RESP 16; TEMP 97.8
--- NOTE | 2024-11-20 11:01 | P.HPOB ---
History of Present Illness H&P Date: 11/20/24 Chief Complaint: The patient is here for her routine gynecologic exam. This is a 59-year-old G3, P3 with an LMP of 2010. Patient is without gynecologic complaints and denies any postmenopausal bleeding. Review of Systems She has gained about 9 pounds over the past 2 years. She denies respiratory or cardiac problems. GI: Occasional constipation. Past Medical History Past Medical History: Cancer, Thyroid Disorder Additional Past Medical History / Comment(s): skin cancer. Hypothyroid. Vertigo. 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 History of Any Multi-Drug Resistant Organisms: None Reported Past Surgical History: Tonsillectomy Additional Past Surgical History / Comment(s): skin cancer removal. Past Psychological History: No Psychological Hx Reported Smoking Status: Never smoker Past Alcohol Use History: None Reported Past Drug Use History: None Reported Additional History: She has been since 1985 and is sexually active. - Past Family History Mother Family Medical History: Diabetes Mellitus, Myocardial Infarction ([place]) Additional Family Medical History / Comment(s): . Father Family Medical History: Myocardial Infarction ([place]) Additional Family Medical History / Comment(s): . Sister(s) Family Medical History: Cancer Additional Family Medical History / Comment(s): Breast cancer. Sister had uterine cancer. Medications and Allergies Home Medications Medication Instructions Recorded Confirmed Type Thyro-Tone 500mg 1 tab PO DAILY 10/27/20 09/21/22 History Cyanocobalamin (Vitamin B-12) 5,000 mcg PO DAILY 12/30/20 09/21/22 History [Vitamin B12] Potassium Citrate 99 mg PO DAILY 11/20/24 11/20/24 History Allergies Allergy/AdvReac Type Severity Reaction Status Date / Time ciprofloxacin [From Cipro] Allergy Rash/Hives Verified 11/20/24 10:22 Exam Vital Signs Temp Pulse Resp BP Pulse Ox 11/20/24 10:25 97.8 F 81 16 115/78 98 Intake and Output 11/19/24 11/20/24 11/20/24 22:59 06:59 14:59 Other: Weight 76.204 kg Height 5 feet 4 inches, weight 168 pounds, BMI 28.8. This is a well-developed well-nourished white female who is alert and oriented times 3 in no acute distress. HEENT: Within normal limits. NECK: Supple without mass or thyromegaly. CHEST AND LUNGS: Clear to auscultation. HEART: Regular rate and rhythm. BREASTS: Are without mass or discharge. AXILLARY EXAM: Negative for adenopathy. BACK: Negative for CVA tenderness. ABDOMEN: Soft, nontender, without palpable masses. PELVIC EXAM: Normal external genitalia with mild atrophy. Cervix and vagina appear normal with mild atrophy. There is no unusual discharge. There is a st able grade 2 cystocele. The uterus is midposition, nongravid size and nontender. There are no palpable adnexal masses or tenderness. RECTAL EXAM: Rectovaginal exam is negative for mass or tenderness and is negative for occult blood. EXTREMITIES: Nontender. IMPRESSION: 1. 59-year-old menopausal female with stable grade 2 cystocele which is asymptomatic. Otherwise unremarkable gynecologic exam. PLAN: 1. Pap smear was deferred since she had a negative Pap smear cotest on 12/30/2020. 2. Self breast awareness was discussed with the patient. We have also discussed symptoms associated with inflammatory breast cancer. 3. Screening mammogram is scheduled for 11/26/2024. The order slip was given to the patient for this. 4. Osteoporosis prevention was discussed. I have stressed the importance of adequate calcium, vitamin D and regular exercise. Recommended amounts of calcium and vitamin D were also discussed. Baseline bone density testing in 1 year was recommended. Will plan on doing this at her next annual well woman examination. 5. She was advised to return in one year for her annual well woman exam.
== END ==
LOC: WWCWWP 10:05
PROVIDERS: ATTEND Obstetrics & Gynecology
DX: Z01.419 Encounter for gynecological examination (general) (routine) without abnormal findings (principal); N81.10 Cystocele, unspecified; Z78.0 Asymptomatic menopausal state; Z88.1 Allergy status to other antibiotic agents

== ENCOUNTER → 2024-11-26 | Outpatient (CLI) | payer MEDICAID ==
--- NOTE | 2024-11-26 11:34 | MM ---
Reason for Exam: Screening (asymptomatic). Last mammogram was performed 2 year(s) and 2 month(s) ago. Patient History: Menarche at age 13. First Full-Term at age 25. Postmenopausal. Paternal aunt had breast cancer. Sister had breast cancer. Risk Values: Quin 5 year model risk: 2.7%. NCI Lifetime model risk: 14.2%. Prior Study Comparison: 06/22/2019 Left Diagnostic Mammogram, [facility]. 01/07/2021 Bilateral Diagnostic Mammogram, [facility]. 09/21/2022 Bilateral MG 3D screening mammo w/cad, [facility]. Tissue Density: The breasts are heterogeneously dense, which may obscure small masses. Findings: Analyzed By CAD. Asymmetric densities on the left are unchanged. There is no suspicious group of microcalcifications or new suspicious mass in either breast. Overall Assessment: Benign, BI-RAD 2 Management: Screening Mammogram of both breasts in 1 year. Patient should continue monthly self-breast exams. A clinical breast exam by your physician is recommended on an annual basis. This exam should not preclude additional follow-up of suspicious palpable abnormalities. Note on Quin scores and lifetime risk: 1. A Quin score greater than 3% is considered moderate risk. If this is the case, consider specialist referral to assess eligibility for a risk reducing agent. 2. If overall lifetime risk for the development of breast cancer is 20% or higher, the patient may qualify for future screening with alternating mammogram and breast MRI. [facility], , 11/26/2024 11:31 AM. Electronically signed and approved by: Larisa Michael M.D. Radiologist
== END | disposition home or self-care (01) ==
LOC: RADMAMWWP 08:07
PROVIDERS: ATTEND Obstetrics & Gynecology
DX: Z12.31 Encounter for screening mammogram for malignant neoplasm of breast (principal); R92.333 Mammographic heterogeneous density, bilateral breasts; Z78.0 Asymptomatic menopausal state; Z80.3 Family history of malignant neoplasm of breast
CPT/HCPCS: 77063; 77067